=== PATIENT | female | born 1955 | race Two or more races ===

== ENCOUNTER 2021-02-20 20:25 | Emergency (ER) | payer SELFPAY ==
[2021-02-20 20:29] VITALS: BP 119/66; PULSE 81; RESP 16; TEMP 36.6; O2SAT 97
--- NOTE | 2021-02-20 22:21 | ED.GENADULT ---
HPI - General Adult General Chief complaint: Skin/Abscess/Foreign Body Stated complaint: needs stitches taken out Time Seen by Provider: 02/20/21 22:21 Source: patient and family Mode of arrival: ambulatory Limitations: no limitations History of Present Illness HPI narrative: Patient 65 years old white female came to the emergency room with her son to remove stitches at the left lower leg. Patient had the sutures done 2 weeks ago. Patient denies any fever, chills, nausea, vomiting, discharge or redness or tenderness Related Data Allergies Allergy/AdvReac Type Severity Reaction Status Date / Time No Known Allergies Allergy Verified 02/20/21 20:34 Review of Systems Review of Systems: CONSTITUTIONAL: Denies fever, chills, or sweats. EYES: Denies visual changes, redness, or discharge. ENT: Denies rhinorrhea, congestion, sore throat, or otalgia. CARDIOVASCULAR: Denies chest pain, palpitations, or edema. RESPIRATORY: Denies cough or dyspnea. GASTROINTESTINAL: Denies abdominal pain, nausea, vomiting, or diarrhea. GENITOURINARY: Denies dysuria or hematuria. SKIN: Denies rash or itching. MUSCULOSKELETAL: Denies back pain, joint pain, or myalgia. NEUROLOGIC: Denies headache, numbness, or weakness. PSYCHIATRIC: Denies anxiety or depression. Exam Narrative: General appearance: Well-developed, well-nourished Skin: Normal color, left lower leg showed a healed wound with 5 sutures, no erythema, no discharge, no swelling Chest and respiratory: Airway patent, no respiratory distress, no accessory muscle use Heart: Regular rate/rhythm Abdomen: Soft, nontender, no organomegaly, quiet bowel sounds Vascular: Normal peripheral pulses, normal capillary refill. Course Course Emergency Course: Stable Vital Signs Vital signs: Vital Signs Temperature 36.6 C 02/20/21 20:29 Pulse Rate 81 02/20/21 20:29 Respiratory Rate 16 02/20/21 20:29 Blood Pressure 119/66 02/20/21 20:29 Pulse Oximetry 97 02/20/21 20:29 Temperature 36.6 C 02/20/21 20:29 Pulse Rate 81 02/20/21 20:29 Respiratory Rate 16 02/20/21 20:29 Blood Pressure 119/66 02/20/21 20:29 Pulse Oximetry 97 02/20/21 20:29 Procedures Other Procedure Procedure 1: Other Procedure: Suture removed by the nurse Medical Decision Making MDM Narrative Medical decision making narrative: Suture removal Vital Signs Vital Signs: Vital Signs Temperature 36.6 C 02/20/21 20:29 Pulse Rate 81 02/20/21 20:29 Respiratory Rate 16 02/20/21 20:29 Blood Pressure 119/66 02/20/21 20:29 Pulse Oximetry 97 02/20/21 20:29 Temperature 36.6 C 02/20/21 20:29 Pulse Rate 81 02/20/21 20:29 Respiratory Rate 16 02/20/21 20:29 Blood Pressure 119/66 02/20/21 20:29 Pulse Oximetry 97 02/20/21 20:29 Critical Care Time Critical Care Time Critical Care Time: No Discharge Plan Discharge Clinical Impression: Visit for suture removal Patient Disposition: Home, Self-Care Condition: Improved Instructions: Antibiotic Form, Stitches Removal (ED) Additional Instructions: Return if symptoms are worsening , call your family physician for appointment, take Tylenol as as needed for aches and pain, continue home medications. Follow-up/Referrals: PHYSICIAN NOT ON STAFF,NONSTAFF [Primary Care Provider] - Dago Smith MD [Physician] -
[2021-02-20 23:39] VITALS: BP 122/68; PULSE 76; RESP 18; O2SAT 98
== END 2021-02-20 23:25 | disposition home or self-care (01) ==
PROVIDERS: Emergency Provider Emergency Medicine
DX: Z48.02 Encounter for removal of sutures (principal)
CPT/HCPCS: 99281

== ENCOUNTER 2021-03-06 02:50 | Observation (INO) | payer SELFPAY ==
[2021-03-06] VITALS (24 sets, daily range): BP systolic 99–118; BP diastolic 56–81; PULSE 59–89; RESP 16–29; TEMP 36–36.8; O2SAT 92–98
--- NOTE | ~2021-03-06 | XR_ITS ---
XR ERCP DATE: 03/06/2021 15:01 INDICATION: Choledocholithiasis TECHNIQUE: Multiple spot C-arm images are provided, obtained during ERCP procedure 539.7 seconds 118.43 mGy COMPARISON: 03/02/2021 CT abdomen pelvis FINDINGS: An endoscope is noted overlying the duodenum, with the catheter extending into the region o f the common bile duct, with subsequent placement of an internal biliary stent. IMPRESSION: Internal biliary drainage stent Reviewed, dictated and finalized at [facility] Reviewed, dictated and finalized at [facility].
--- NOTE | ~2021-03-06 | CT_ITS ---
EXAMINATION: CT abdomen pelvis w con EXAM DATE: 03/06/2021 04:43 INDICATION: Epigastric pain . TECHNIQUE: Spiral CT of the abdomen and pelvis was performed following intravenous injection of 100 m L Omnipaque 350. Axial, coronal and sagittal images of the abdomen and pelvis were reviewed. The do se-length product (DLP) for this examination was 367.99 mGy-cm. The exposure was tailored according to patient size (auto mA exposure control), and iterative reconstruction (ASIR) was used as additiona l dose reduction technique. There is no prior study for comparison. FINDINGS: For interpretation purposes, essentially noncontrast examination, IV may have infiltrated. The liver, spleen, adrenal glands and pancreas are unremarkable. Status post cholecystectomy with r esultant biliary duct dilation. There is choledocholithiasis measuring 1 cm near the ampulla. There is no nephrolithiasis or hydronephrosis. The uterus is unremarkable. The bladder is unremarkable. There is no retroperitoneal or pelvic lymphadenopathy. Contiguous to the cecal base there is somewhat tubular C-shaped cystic mass measuring about 4 x 6 cm. Portions of the wall are mildly thickened and malignancy is possibility. This appears to be separate from main normal laterally positioned appendix and right ovary. No enlarged mesenteric lymph nodes. The stomach and small bowel are unremarkable. There is expected amount of colonic stool. No free intraperitoneal gas. Mild cardiomegaly. The lung bases are unremarkable. There are no osteoblasti c or osteolytic lesions identified. IMPRESSION: 1. Pericecal cystic mass differential diagnosis including Meckel's diverticulum, paraovarian cyst, c arcinoid tumor, other benign or malignant neoplasm. 2. Cholecystectomy, chronic appearing biliary dilation and choledocholithiasis in midportion of dila carol CBD, does not appear to be obstructing at present. Reviewed, dictated and finalized at [facility]. IMPRESSION: 1. Pericecal cystic mass differential diagnosis including Meckel's diverticulu m, paraovarian cyst, carcinoid tumor, other benign or malignant neoplasm. 2. Cholecystectomy, chronic appearing biliary dilation and choledocholithiasis in midportion of dilated CBD, does not appear to be obstructing at present.
[2021-03-06 03:17] LABS: Basophils Absolute Auto 0.1 K/mm3 (0.0-0.1); Eosinophils Percent Auto 0.6 % (0-4.4); Hematocrit 43.7 % (37.0-47.0); Hemoglobin 13.9 g/dL (12.0-15.0); Immature Granulocyte Absolute 0.01 K/mm3 (0.00-0.031); Immature Granulocyte Percent A 0.2 % (0-0.5); Lymphocytes Absolute Auto 1.56 K/mm3 (0.9-3.2); Mean Corpuscular HGB Conc 31.8 g/dl (32-36); Mean Corpuscular Hemoglobin 29.3 pg (26-34); Mean Platelet Volume 10.9 fl (7.4-10.4); Monocytes Absolute Auto 0.4 K/mm3 (0.1-0.6); Monocytes Percent Auto 5.6 % (2.6-8.5); Neutrophils Absolute Auto 4.2 K/mm3 (1.3-6.7); Neutrophils Percent Auto 67.6 % (45.5-73.1); Platelet Count Result 220 k/mm3 (150-375); Red Blood Count 4.75 M/mm3 (4.2-5.4); Red Cell Distribution Width 12.1 % (11.5-14.5); White Blood Count 6.2 K/mm3 (4.5-10.0)
[2021-03-06 03:22] LABS: Add Urine Microscopic? YES; Appearance Urine Clear (Clear); Bilirubin Urine Negative (Negative); Blood Urine Negative (Negative); Color Urine Amber (Yellow); Glucose Urine UA Negative (Negative); Ketones Urine Negative (Negative); Leukocyte Esterase Ur Negative LEU/UL (Negative); Mucus Urine Rare /lpf; Nitrate Urine Negative (Negative); Protein Urine Negative (Negative); RBC Urine 0-2 /hpf (0-2); Specific Grav Ur 1.017 (1.001-1.035); Squamous Epithelial Cell Urine Rare /hpf (Few); WBC Urine 0-3 /hpf
[2021-03-06 03:49] LABS: Alanine Aminotransferase 169 U/L (4-35); Albumin Level 4.2 g/dL (3.5-5.1); Alkaline Phosphatase 493 U/L (38-126); Anion Gap 9 mmol/L (8-16); Aspartate Amino Transferase 335 U/L (14-36); Bilirubin,Total 1.4 mg/dL (0.2-1.3); Blood Urea Nitrogen 16 mg/dL (7-17); Calcium 9.8 mg/dL (8.4-10.2); Carbon Dioxide 26 mmol/L (22-30); Chloride 104 mmol/L (98-107); Estimated CRCL calculation 63 ml/min; Estimated Glomerular Filt Rate > 60; Glucose 147 mg/dL (65-110); Lipase 300 U/L (23-300); Potassium 4.4 mmol/L (3.4-5.0); Sodium 139 mmol/L (137-145)
--- NOTE | 2021-03-06 03:53 | ED.ABDPAIN ---
HPI - Abdominal Pain General Chief Complaint: Abdominal Pain Stated Complaint: abd pain/ surgery 1 month [employer] Source: patient Mode of arrival: ambulatory Limitations: no limitations History of Present Illness HPI narrative: Patient is a 65-year-old female complaining of epigastric pain, sharp, 9 out of 10 accompanied by nausea and vomiting, worse after eating that started approximately 1 month ago after she had her gallbladder surgery. Patient states that the pain is worse at night and that is why she came in. Patient denies any chest pain, shortness of breath, diarrhea, fever or chills. Related Data Allergies Allergy/AdvReac Type Severity Reaction Status Date / Time No Known Allergies Allergy Verified 02/20/21 20:34 Review of Systems Review of Systems: All systems reviewed & are unremarkable except as noted in HPI and below Constitutional: Constitutional: Denies body ache(s), Denies chills, Denies excessive sweating, Denies fatigue, Denies fever(s), Denies headache(s), Denies lethargy, Denies malaise, Denies weakness and Denies weight loss Eyes: Eyes: Denies blurry vision, Denies change in vision and Denies loss of vision ENT: Denies dizziness, Denies ear discharge, Denies headache(s), Denies lip swelling, Denies epistaxis, Denies nasal congestion, Denies neck pain, Denies throat swelling and Denies tongue swelling Cardiovascular: Cardiovascular: Denies chest pain, Denies chest pain at rest, Denies chest pain with activity, Denies diaphoresis, Denies rapid heart rate, Denies edema, Denies irregular heart rhythm, Denies lightheadedness, Denies palpitations, Denies dyspnea and Denies dyspnea on exertion Respiratory: Respiratory: Denies chest congestion, Denies cough, Denies hemoptysis, Denies dyspnea and Denies dyspnea on exertion Gastrointestinal: Gastrointestinal: Denies melena, Denies hematochezia, Denies diarrhea and Denies hematemesis Musculoskeletal: Musculoskeletal: Denies abnormal gait, Denies deformity, Denies joint swelling, Denies limited range of motion, Denies neck pain and Denies numbness Neurologic: Denies Abnormal speech present, Denies abnormal gait, Denies confusion, Denies dizziness, Denies headache(s), Denies focal weakness, Denies loss of vision, Denies numbness, Denies Other visual disturbances, Denies Sensory deficit (Neuro) and Denies weakness Psychiatric: Psychiatric: Denies confusion, Denies depression, Denies auditory hallucinations, Denies homicidal ideation and Denies suicidal ideation Endocrine: Endocrine: Denies cold intolerance, Denies excessive sweating, Denies fatigue, Denies heat intolerance and Denies palpitations Hematologic/Lymphatic: Hematologic/Lymphatic: Denies easy bleeding and Denies easy bruising Allergic/Immunologic: Allergic/Immunologic: Denies lip swelling, Denies throat swelling and Denies tongue swelling [facility] Social History Social History Gender identity (if verbalized by the patient): Female Comments Past medical history: Ivan duffy Family history: Noncontributory Social history: Non-smoker no EtOH use Exam Const: General: cooperative, healthy appearing, comfortable, no acute distress, well developed, alert and awake; No confusion Orientation/consciousness: oriented to person, oriented to place, oriented to time, patient oriented x3 and No confusion Limitations: no limitations HENMT: Head: normal to inspection, normocephalic and atraumatic Ears: hearing grossly normal bilaterally, TM normal on the right and TM normal on the left General nose exam: Normal external nose present, Normal nares present and No nasal discharge present Face and sinus: normal facial exam Mouth: Yes Normal oral and palatal mucosa present, Yes lip normal, Yes tongue normal and Yes oropharynx normal Throat: posterior oropharynx normal, tonsils normal and uvula midline Eyes: General: appearance normal, both eyes and all related structures Pupils: Equa
[2021-03-06] MEDS: HYDROmorphone HCL INJ (*CRX) 1 MG/ML SYR 0.5 MG IV PUSH (04:09)
[2021-03-06] MEDS: PROMETHAZINE HCL 25 MG/ML AMPUL 12.5 MG IV PUSH (04:09)
--- NOTE | 2021-03-06 08:58 | WPDANESEPPF ---
Anes - Initial Pre Proc Eval Procedure: Operation Date: 03/06/21 12:00 Proposed Procedures p Endoscopic Retro Cholangiopancreatogram - Alan Thurston MD Date/Time: 03/06/21 08:58 Surgeon: Maribell Capps MD Pre Op Diagnosis: choledocholithiasis Patient Data Age: 65 Gender: F Height: 1.52 m Weight: 60 kg Last Vital Signs Temp 36.5 C 03/06/21 04:06 Pulse 71 03/06/21 07:36 Resp 19 03/06/21 07:36 BP 103/72 03/06/21 07:36 Pulse Ox 96 03/06/21 07:36 Allergies Allergy/AdvReac Type Severity Reaction Status Date / Time No Known Allergies Allergy Verified 03/06/21 10:55 Home Medications Medication Instructions Recorded Confirmed Type No Home Medications 03/06/21 03/06/21 History Laboratory Tests 03/06/21 03/06/21 03/06/21 03:10 03:10 03:10 WBC 6.2 K/mm3 K/mm3 (4.5-10.0) RBC 4.75 M/mm3 M/mm3 (4.2-5.4) Hgb 13.9 g/dL g/dL (12.0-15.0) Hct 43.7 % % (37.0-47.0) MCV 92.0 fl fl (80-100) MCH 29.3 pg pg (26-34) MCHC 31.8 g/dl L g/dl (32-36) RDW 12.1 % % (11.5-14.5) Plt Count 220 k/mm3 k/mm3 (150-375) MPV 10.9 fl H fl (7.4-10.4) Immature Gran % (Auto) 0.2 % % (0-0.5) Neut % (Auto) 67.6 % % (45.5-73.1) Lymph % (Auto) 25.0 % % (18.3-44.2) [place] % (Auto) 5.6 % % (2.6-8.5) Eos % (Auto) 0.6 % % (0-4.4) Baso % (Auto) 1.0 % % (0.2-1.2) Lymph # (Auto) 1.56 K/mm3 K/mm3 (0.9-3.2) [place] # (Auto) 0.4 K/mm3 K/mm3 (0.1-0.6) Eos # (Auto) 0.0 K/mm3 K/mm3 (0-0.3) Baso # (Auto) 0.1 K/mm3 K/mm3 (0.0-0.1) Abs Immat Gran (auto) 0.01 K/mm3 K/mm3 (0.00-0.031) Absolute Neuts (auto) 4.2 K/mm3 K/mm3 (1.3-6.7) Absolute Nucleated RBC 0.0 K/mm3 K/mm3 (0.0-0.012) Nucleated RBC % 0.0 % % (0.0-0.2) Sodium 139 mmol/L mmol/L (137-145) Potassium 4.4 mmol/L mmol/L (3.4-5.0) Chloride 104 mmol/L mmol/L (98-107) Carbon Dioxide 26 mmol/L mmol/L (22-30) Anion Gap 9 mmol/L mmol/L (8-16) BUN 16 mg/dL mg/dL (7-17) Creatinine 0.60 mg/dL L mg/dL (0.7-1.0) Estim Creat Clear Calc 63 ml/min ml/min Estimated GFR > 60 (59 - ) Glucose 147 mg/dL H mg/dL (65-110) Calcium 9.8 mg/dL mg/dL (8.4-10.2) Total Bilirubin 1.4 mg/dL H mg/dL (0.2-1.3) AST 335 U/L H U/L (14-36) ALT 169 U/L H U/L (4-35) Alkaline Phosphatase 493 U/L H U/L (38-126) Total Protein 8.0 g/dL g/dL (6.3-8.2) Albumin 4.2 g/dL g/dL (3.5-5.1) Lipase 300 U/L U/L (23-300) Urine Color [place] (Yellow) Urine Appearance Clear (Clear) Urine pH 5.0 (5.0-9.0) Ur Specific [place] 1.017 (1.001-1.035) Urine Protein Negative mg/dL mg/dL (Negative) Urine Glucose (UA) Negative mg/dL mg/dL (Negative) Urine Ketones Negative mg/dL mg/dL (Negative) Ur Blood (Man) Negative (Negative) Urine Nitrate Negative (Negative) Urine Bilirubin Negative (Negative) Urine Urobilinogen 4.0 mg/dL H mg/dL (<2.0) Leukocyte Esterase Rfl Negative LASHAE/UL LASHAE/UL (Negative) Urine RBC 0-2 /hpf /hpf (0-2) Urine WBC 0-3 /hpf /hpf Ur Squamous Epith Cells Rare /hpf /hpf (Few) Urine Mucus Rare /lpf /lpf Patient hx anesthesia problems: none Family hx anesthesia problems: none PMFSH Social History Social History Gender identity (if verbalized by the patient): Female Anes - Eval Final PreProcedure Day of Procedure 03/06/21 08:58 Patient weight: overweight Heart: regular rat
[2021-03-06] MEDS: LACTATED RINGERS 1,000 ML 125 ML IV CONT ×2 (10:08→16:47)
[2021-03-06] MEDS: LACTATED RINGERS 1,000 ML 150 ML IV CONT (11:00)
--- NOTE | 2021-03-06 13:09 | WPDGICN ---
Assessment and Plan Assessment and plan (1) Bile duct abnormality: Code(s): K83.9 - Disease of biliary tract, unspecified Status: Acute Assessment and Plan: CT scan reviewed, she had lap clive at [facility] 1 month ago and she has been symptomatic since. Worried about retained stones but also need to assess if bile leak or iatrogenic complications. ERCP to assess and more recommendations after scope. [facility]. (2) RUQ pain: Code(s): R10.11 - Right upper quadrant pain Status: Acute Assessment and Plan: biliary colic worsened after lap clive will assess with ercp to check if stones, complications, etc (3) Elevated liver enzymes: Code(s): R74.8 - Abnormal levels of other serum enzymes Status: Acute Assessment and Plan: biliary related may need antibiotics (4) Nausea and vomiting in adult: Code(s): R11.2 - Nausea with vomiting, unspecified Status: Acute Assessment and Plan: medical treatment (5) Hx laparoscopic cholecystectomy: Code(s): Z90.49 - Acquired absence of other specified parts of digestive tract Status: Acute GI Consult Note Consult date/time: 03/06/21 13:09 Reason for consult: ruq pain, elevated lft's, abnormal bile duct by CT scan HPI: Harris Garcia is a 65 year old female who is originally from [facility] but lives here with family, her son is here and he is translating (she does not speak Colombian). About 1 month ago when she was visiting friend back in [facility] underwent lap cholecystectomy and since then has been having intermittent RUQ pain with decrease appetite but last few days worsening pain, sharp in nature and severe, yesterday with nausea and vomiting. Blood work revealed elevated liver enzymes with bili 1.4, transaminases 150-300's. CT scan showed 4x6cm pericecal cystic mass differential diagnosis including Meckel's diverticulum, paraovarian cyst, carcinoid tumor, other benign or malignant neoplasm, cholecystectomy, chronic appearing biliary dilation and choledocholithiasis in midportion of dilated CBD, does not appear to be obstructing at present. She never had scopes. Denies diarrhea. Review of Systems Constitutional: Constitutional: Reports lethargy Eyes: Eyes: Denies blurry vision ENT: Reports Normal hearing present Cardiovascular: Cardiovascular: Denies chest pain Respiratory: Respiratory: Denies dyspnea Gastrointestinal: Gastrointestinal: Reports abdominal pain, Reports nausea and Reports vomiting Genitourinary: Genitourinary: Denies hematuria Musculoskeletal: Musculoskeletal: Denies neck pain Integumentary/Breasts: Skin/Breast: Denies dry skin Neurologic: Denies headache(s) Psychiatric: Psychiatric: Reports no additional psychiatric complaints [facility] Past Medical History Medical History (Updated 03/06/21 @ 16:26 by Alan Thurston MD) Bile duct abnormality Nausea and vomiting in adult RUQ pain Surgical History Surgical History (Updated 03/06/21 @ 16:26 by Alan Thurston MD) Hx laparoscopic cholecystectomy Social History Social History Gender identity (if verbalized by the patient): Female Meds Home Medications and Allergies Home Medications Medication Instructions Recorded Confirmed Type No Home Medications 03/06/21 03/06/21 History Allergies Allergy/AdvReac Type Severity Reaction Status Date / Time No Known Allergies Allergy Verified 03/06/21 10:55 Vital Signs Vital Signs - 24 hr 03/06/21 02:58 03/06/21 04:06 03/06/21 04:36 Temperature 97.0 F L 97.7 F Pulse Rate 80 71 76 Respiratory Rate 16 25 H 19 Blood Pressure 110/66 104/81 Pulse Oximetry 98 97 95 03/06/21 04:45 03/06/21 05:00 03/06/21 05:15 Temperature Pulse Rate 76 72 72 Respiratory Rate 28 H 29 H 28 H Blood Pressure Pulse Oximetry 95 93 94 03/06/21 05:49 0
[2021-03-06] MEDS: INDOMETHACIN 50 MG SUPP.RECT RECTAL (13:31)
--- NOTE | 2021-03-06 13:52 | PM.IMHP ---
H&P: HPI History of Present Illness Date/Time: 03/06/21 13:52 Chief Complaint: Abdominal pain with nausea vomiting Narrative: 65-year-old female was vacationing in [facility] for about 2 months. She had sudden onset of right upper quadrant abdominal pain nausea vomiting. Her son who was Will vacationing with her took her to a private Hospital where she had a laparoscopic cholecystectomy. Since the surgery she has had postprandial right upper quadrant abdominal pain and nausea with emesis. Even drinking water causes symptoms. The pain is moderate to severe. Last for several minutes. She has had no hematemesis. No melena or hematochezia. No prior history of GI issues. She has been quite healthy all of her life. Her stools have not been ranch [place] than usual nor darker than usual. She denied fevers chills or sweats. Over the last month she has lost 10-12 lb due to decreased appetite and abdominal pain. While in the emergency department she had abdominal CT that suggested choledocholithiasis. However when she was taken for ERCP the endoscopist found biliary stricture a bile leak and pus. Hx obtained from son, chart, and discussion with Dr. Medina. Review of Systems Review of Systems: She denied fevers chills sweats chest pain shortness of breath dyspnea on exertion edema palpitations syncope presyncope rash itching headaches weakness or numbness. All systems reviewed & are unremarkable except as noted in HPI and below PMFSH Past Medical History Medical History (Updated 03/06/21 @ 17:59 by Boom Avery MD) Bile duct abnormality Nausea and vomiting in adult RUQ pain Surgical History Surgical History (Updated 03/06/21 @ 17:59 by Boom Avery MD) Hx laparoscopic cholecystectomy Hx of section Family History Family History (Updated 03/06/21 @ 18:02 by Boom Avery MD) Son No problems noted. Social History Social History (Updated 03/06/21 @ 18:03 by Boom Avery MD) Smoking status: Never smoker Alcohol intake: never Substance use: never Substance use type: does not use Living arrangements: with family Additional living arrangements comments: Lives with son Occupation/Education: retired Gender identity (if verbalized by the patient): Female Spiritual care concerns: No Meds Home Medications and Allergies Home Medications Medication Instructions Recorded Confirmed Type No Home Medications 03/06/21 03/06/21 History Allergies Allergy/AdvReac Type Severity Reaction Status Date / Time No Known Allergies Allergy Verified 03/06/21 10:55 Vital Signs Vital Signs - 24 hr 03/06/21 02:58 03/06/21 04:06 03/06/21 04:36 Temperature 97.0 F L 97.7 F Pulse Rate 80 71 76 Respiratory Rate 16 25 H 19 Blood Pressure 110/66 104/81 Pulse Oximetry 98 97 95 03/06/21 04:45 03/06/21 05:00 03/06/21 05:15 Temperature Pulse Rate 76 72 72 Respiratory Rate 28 H 29 H 28 H Blood Pressure Pulse Oximetry 95 93 94 03/06/21 05:49 03/06/21 07:36 03/06/21 09:20 Temperature Pulse Rate 73 71 89 Respiratory Rate 24 H 19 27 H Blood Pressure 103/72 108/70 Pulse Oximetry 94 96 95 03/06/21 10:45 03/06/21 10:57 Temperature 97.7 F Pulse Rate 84 83 Respiratory Rate 29 H 18 Blood Pressure 99/70 L 112/68 Pulse Oximetry 96 98 Exam Narrative: HEENT: PERRL, sclerae nonicteric, pharyngeal mucosa pink and intact NECK: No JVD, adenopathy, or thyromegaly CHEST: Clear to auscultation. Normal effort. HEART: NL S1/S2, regular, no murmur ABDOMEN: BS+, soft, TENDER EPIGASTRIUM TO RIGHT UPPER QUADRANT, no mass, no bruits EXTREMITIES: No cyanosis, edema, or clubbing NEUROLOGIC: CN intact and symmetric to inspection. MUSCULOSKELETAL: Tone and strength symmetric. PSYCH: Alert. Oriented to person, place, and time. H&P: Results Labs Labs: Short CBC 03/06/21 Range/Units 03:10 WBC 6.2 (4.5-10.0) K/mm3 Hgb 13.9 (12.0-15.0)
--- NOTE | 2021-03-06 16:34 | PC.NURSE ---
This patient, Harris Garcia, was admitted to Medical Room 247-. Patient/family oriented to hospital policies and general routines including ID bracelet, bed and alarms, visiting hours, pain management, procedures, bathroom and other care routines, personal items, smoking policy, room service/diet, and visiting hours. Information on how to activate the Rapid Response Team has been discussed. Patient/Family are encouraged to report perceived risks to care and to ask questions if they do not understand what they are told or what they should do.
--- NOTE | 2021-03-18 16:02 | PM.TDS ---
Transfer Discharge Sum: Prov Provider Date of admission: 03/06/21 06:22 Primary care physician: AGENCY SALES REPRESENTATIVE PHYSICIAN Admitting clinician: Maribell Capps MD Consults: 03/06/21 Consult to Physician Routine Comment: Consulting Provider: Alan Thurston Reason for consultation: CHOLEDOCHOLITHIASIS Has provider been notified: Yes DS: Admitting Diagnosis Admitting Diagnosis abdominal pain with possible choledocholithiasis DS: Discharge Diagnosis Discharge Diagnosis (1) Acute cholangitis: Code(s): K83.09 - Other cholangitis Status: Acute Assessment and Plan: ZOSYN (2) Biliary stricture: Code(s): K83.1 - Obstruction of bile duct Status: Acute Assessment and Plan: REFERRAL TO BILIARY SURGEON (3) Bile leak: Code(s): K83.9 - Disease of biliary tract, unspecified Status: Acute Assessment and Plan: REFERRAL TO BILIARY SURGEON (4) Elevated liver enzymes: Code(s): R74.8 - Abnormal levels of other serum enzymes Status: Acute Assessment and Plan: DUE TO CHOLANGITIS Transfer Discharge Sum: Med Medications Active and Home Medications: Home Medications No Home Medications 03/06/21 [History Confirmed 03/06/21] Transfer Discharge Sum: Hosp Hospital Course Hospital course: Harris Garcia is a 65 year old female who was vacationing in [facility] for about 2 months. She had sudden onset of right upper quadrant abdominal pain nausea vomiting. Her son who was Will vacationing with her took her to a private Hospital where she had a laparoscopic cholecystectomy. Since the surgery she has had postprandial right upper quadrant abdominal pain and nausea with emesis. Even drinking water causes symptoms. The pain is moderate to severe. Last for several minutes. She has had no hematemesis. No melena or hematochezia. No prior history of GI issues. She has been quite healthy all of her life. Her stools have not been support technician than usual nor darker than usual. She denied fevers chills or sweats. Over the last month she has lost 10-12 lb due to decreased appetite and abdominal pain. While in the emergency department she had abdominal CT that suggested choledocholithiasis. However when she was taken for ERCP the endoscopist found biliary stricture a bile leak and pus. Hx obtained from son, chart, and discussion with Dr. Medina. She had an unremarkable stay following her procedure. [facility] was contacted as a tertiary referral center who might be able to more effectively intervene with a biliary surgeon or rock singer with more tools at his disposal. Fortunately a bed opened the same day they were contacted and the patient transferred expeditiously to [facility] for further evaluation and treatment. Time Spent with Patient Time attestation: Total time spent providing and/or coordinating transfer services: Exam Narrative: HEENT: PERRL, sclerae nonicteric, pharyngeal mucosa pink and intact NECK: No JVD, adenopathy, or thyromegaly CHEST: Clear to auscultation. Normal effort. HEART: NL S1/S2, regular, no murmur ABDOMEN: BS+, soft, TENDER EPIGASTRIUM TO RIGHT UPPER QUADRANT, no mass, no bruits EXTREMITIES: No cyanosis, edema, or clubbing NEUROLOGIC: CN intact and symmetric to inspection. MUSCULOSKELETAL: Tone and strength symmetric. PSYCH: Alert. Oriented to person, place, and time.
== END 2021-03-06 20:30 | disposition short-term general hospital (02) ==
LOC: ANHED 08:39 → ANH2MED 08:51
PROVIDERS: Internal Medicine Gastroenterology; Admitting Provider Internal Medicine; Emergency Provider Emergency Medicine; Visit Provider Internal Medicine
PROC: (CPT 43260; principal; 2021-03-06 12:00)
DX: K83.09 Other cholangitis (principal); K83.1 Obstruction of bile duct; R74.8 Abnormal levels of other serum enzymes; R10.11 Right upper quadrant pain; Z90.49 Acquired absence of other specified parts of digestive tract
CPT/HCPCS: 43274; 36415; 74177; 74329; 80053; 81001; 83690; 85025; 87040; 96361; 96365; 96375; 99285; A9270; C1876; G0378; G0379; J0330; J1100; J1170; J2405; J2543; J2550; J2704; J3010; J7120; Q9967

== ENCOUNTER 2022-02-21 17:41 | Emergency (ER) | payer MEDICAID, SELFPAY ==
--- NOTE | ~2022-02-21 | CT_ITS ---
EXAMINATION: CT abdomen pelvis w con DATE: 02/21/2022 20:14 INDICATION: Right lower quadrant pain TECHNIQUE: Computed tomography (CT) of the abdomen and pelvis was performed with 100 cc Omnipaque 350 intravenous contrast. The dose-length product was 459.41 mGy-cm. Automated exposure control and iter ative reconstruction technique were employed. COMPARISON: CT dated 03/06/2021. FINDINGS: There is a cystic mass which is contiguous with the cecum measuring 6.1 x 4.7 x 4.9 cm. The appendix is not clearly delineated separate from this mass. There is a fat-containing umbilical ayala ia. Dependent atelectasis. Heart size upper normal. No significant pleural or pericardial effusion. Statu s post cholecystectomy with pneumobilia. The spleen, pancreas, adrenal glands and kidneys are unremar kable. No significant vascular abnormality. No lymphadenopathy. No free air or free fluid. Nonobstruc tive bowel gas pattern. IMPRESSION: 1. Peripherally enhancing cystic mass contiguous with the cecum. The appendix is not clearly identifi able separate from this mass which may represent a mucocele of the appendix. Differential diagnosis i ncludes appendiceal tumors, cecal carcinoma and benign and malignant mucinous neoplasms. Reviewed, dictated and finalized at location A. IMPRESSION: 1. Peripherally enhancing cystic mass contiguous with the cecum. The appendix i s not clearly identifiable separate from this mass which may represent a mucoce le of the appendix. Differential diagnosis includes appendiceal tumors, cecal c arcinoma and benign and malignant mucinous neoplasms.
[2022-02-21 17:42] VITALS: BP 96/64; PULSE 94; RESP 18; TEMP 36.4; O2SAT 96
[2022-02-21 18:00] LABS: Basophils Absolute Auto 0.1 K/mm3 (0.0-0.1); Basophils Percent Auto 0.7 % (0.2-1.2); Eosinophils Absolute Auto 0.1 K/mm3 (0-0.3); Eosinophils Percent Auto 0.7 % (0-4.4); Immature Granulocyte Absolute 0.02 K/mm3 (0.00-0.031); Immature Granulocyte Percent A 0.3 % (0-0.5); Lymphocytes Absolute Auto 2.26 K/mm3 (0.9-3.2); Lymphocytes Percent Auto 32.6 % (18.3-44.2); Mean Corpuscular HGB Conc 32.5 g/dl (32-36); Mean Corpuscular Hemoglobin 29.2 pg (26-34); Mean Corpuscular Volume 89.9 fl (80-100); Mean Platelet Volume 10.4 fl (7.4-10.4); Monocytes Absolute Auto 0.8 K/mm3 (0.1-0.6); Monocytes Percent Auto 10.8 % (2.6-8.5); Neutrophils Absolute Auto 3.8 K/mm3 (1.3-6.7); Neutrophils Percent Auto 54.9 % (45.5-73.1); Platelet Count Result 239 k/mm3 (150-375); Red Blood Count 4.45 M/mm3 (4.2-5.4); Red Cell Distribution Width 11.8 % (11.5-14.5); White Blood Count 6.9 K/mm3 (4.5-10.0)
[2022-02-21 18:10] LABS: Alanine Aminotransferase 17 U/L (6-35); Albumin Level 4.3 g/dL (3.5-5.1); Alkaline Phosphatase 101 U/L (38-126); Anion Gap 8 mmol/L (8-16); Aspartate Amino Transferase 24 U/L (14-36); Bilirubin,Total 0.4 mg/dL (0.2-1.3); Blood Urea Nitrogen 18 mg/dL (7-17); Carbon Dioxide 29 mmol/L (22-30); Chloride 104 mmol/L (98-107); Estimated Glomerular Filt Rate > 60; Glucose 109 mg/dL (65-110); Lipase 279 U/L (23-300); Sodium 141 mmol/L (137-145)
[2022-02-21 18:22] LABS: Appearance Urine Cloudy (Clear); Bilirubin Urine Negative (Negative); Color Urine Yellow (Yellow); Glucose Urine UA Negative (Negative); Ketones Urine Trace mg/dL (Negative); Leukocyte Esterase Ur 2+ LEU/UL (Negative); Nitrate Urine Positive (Negative); Protein Urine 1+ mg/dL (Negative); Urobilinogen Urine 0.2 mg/dL (<2.0); pH Urine 5.5 (5.0-9.0)
[2022-02-21 18:31] LABS: Add Urine Microscopic? YES; Blood Urine Trace-Intact (Negative)
[2022-02-21 18:34] LABS: Bacteria Urine Trace /hpf; Mucus Urine Rare /lpf; Squamous Epithelial Cell Urine Rare /hpf (Few); WBC Urine >75 /hpf
--- NOTE | 2022-02-21 19:15 | PC.NURSE ---
Patient report given to MAI Lin. ALl questions answered and care of patient transferred.
[2022-02-21 19:20] VITALS: BP 96/66; PULSE 70; RESP 17; O2SAT 94
[2022-02-21 19:51] VITALS: BP 107/71; PULSE 73; RESP 18; O2SAT 97
--- NOTE | 2022-02-21 19:53 | ED.ABDPAIN ---
HPI - Abdominal Pain General Chief Complaint: Abdominal Pain Stated Complaint: Abd pain Time Seen by Provider: 02/21/22 18:45 Source: patient, family and certified pharmacist assistant Mode of arrival: ambulatory Limitations: language barrier History of Present Illness HPI narrative: Patient is a 66 y/o female who presents the ED with report of lower abdominal pain and urinary symptoms. Patient is primarily Faroese speaking. Patient's grandson at bedside is Mongolian speaking and translated for patient. I did offer to use [employer] certified pharmacist assistant, though grandson felt comfortable translating. Patient reports having lower abdominal pain for the past 4 days. She also reports having pain and burning with urination. Denies hematuria. Intermittent nausea and vomiting, denies any nausea currently. No fever, chills, diarrhea, constipation, low back pain. Took 2 Aleve around 2 PM today. Related Data Allergies Allergy/AdvReac Type Severity Reaction Status Date / Time No Known Allergies Allergy Verified 03/06/21 10:55 Review of Systems Review of Systems: CONSTITUTIONAL: Denies fever, chills, or sweats. CARDIOVASCULAR: Denies chest pain. RESPIRATORY: Denies dyspnea. GASTROINTESTINAL: Reports lower abdominal pain, nausea, vomiting. Denies constipation or diarrhea. GENITOURINARY: Reports dysuria. Denies hematuria. MUSCULOSKELETAL: Denies lower back pain. All systems reviewed & are unremarkable except as noted in HPI and below PMFSH Past Medical History Medical History Bile duct abnormality Nausea and vomiting in adult RUQ pain Surgical History Surgical History Hx laparoscopic cholecystectomy Hx of section Family History Family History (Updated 03/06/21 @ 18:02 by Boom Avery MD) Son No problems noted. Social History Social History Smoking status: Never smoker Alcohol intake: never Substance use: never Substance use type: does not use Additional living arrangements comments: Lives with son Gender identity (if verbalized by the patient): Female Spiritual care concerns: No Exam Narrative: GENERAL: Well appearing, well-nourished, non-toxic, in no acute distress. HEAD: Normocephalic, atraumatic. NECK: Supple. No adenopathy, no masses. RESPIRATORY: Airway patent, respirations nonlabored. Clear to auscultation bilaterally, no rales, rhonchi, wheezing. CARDIOVASCULAR: Regular rate and rhythm without murmurs, rubs, or gallops. Peripheral pulses 2+ and equal bilaterally. ABDOMINAL: Soft, tenderness to palpation in suprapubic region, right lower quadrant. Nondistended, no hepatosplenomegaly. Normoactive BS. No CVA tenderness to percussion. MUSCULOSKELETAL: Moves all extremities. Strength/ROM intact without gross deformities. No midline spinal tenderness. SKIN: Warm, dry, normal color. No rashes. NEURO: A&O X3. Speech clear. Cranial nerves II-XII grossly intact. Steady gait. No ataxic movements. PSYCHIATRIC: Appropriate mood and affect. Normal interaction. Course Consultations Consultation #1: Discussed CT findings and patient presentation with Dr. Phelan, general surgery. Advised patient may need colon resection in the future, but non emergently. Recommended patient can be discharged home with antibiotics and f/u in the office as outpatient. Date: 02/21/22 Time: 21:30 Vital Signs Vital signs: Vital Signs Temperature 97.6 F 02/21/22 17:42 Pulse Rate 94 02/21/22 17:42 Respiratory Rate 18 02/21/22 17:42 Blood Pressure 96/64 L 02/21/22 17:42 Pulse Oximetry 96 02/21/22 17:42 Temperature 97.6 F 02/21/22 17:42 Pulse Rate 72 02/21/22 21:29 Respiratory Rate 15 02/21/22 21:29 Blood Pressure 100/79 02/21/22 21:29 Pulse Oximetry 98 02/21/22 21:29 MDM - Abdominal Pain MDM Narrative Medical decision making narrative: Zahraa
--- NOTE | 2022-02-21 19:58 | PC.NURSE ---
Pt to CT scan via stretcher at this time.
[2022-02-21] MEDS: SODIUM CHLORIDE 0.9% IV 1,000 ML 999 ML IV CONT (20:26)
[2022-02-21 21:29] VITALS: BP 100/79; PULSE 72; RESP 15; O2SAT 98
== END 2022-02-21 22:47 | disposition home or self-care (01) ==
PROVIDERS: Emergency Provider Emergency Medicine
DX: N30.01 Acute cystitis with hematuria (principal); R19.09 Other intra-abdominal and pelvic swelling, mass and lump
CPT/HCPCS: 36415; 74177; 80053; 81001; 83690; 85025; 87077; 87086; 87186; 96365; 96367; 99284; J0131; J0696; J7030; Q9967

== ENCOUNTER 2022-04-03 15:59 | Emergency (ER) | payer MEDICAID, SELFPAY ==
--- NOTE | ~2022-04-03 | CT_ITS ---
EXAMINATION: CT abdomen pelvis w con DATE: 04/03/2022 17:46 INDICATION: Right lower quadrant abdominal pain TECHNIQUE: Computed tomography (CT) of the abdomen and pelvis was performed with 100 CC Omnipaque 350 intravenous contrast. Automated exposure control and iterative reconstruction technique were employe d. Exam dose: 469.41 mGy-cm total exam DLP. COMPARISON: 02/21/2022 CT abdomen pelvis FINDINGS: The lung bases are clear of infiltrate or consolidation. Heart size is normal. No pericardi al or pleural effusion. Status post cholecystectomy, which likely accounts for pneumobilia. No hepatic, splenic, pancreatic, adrenal or renal space-occupying mass lesion is detected. Normal caliber of the abdominal aorta. No intraperitoneal or retroperitoneal or pelvic mass lesion or adenopathy or ascites. Uterus, adnexal areas and urinary bladder are unremarkable. There is a thick walled hypoattenuating lesion in the cecal area in the right lower quadrant, current ly measuring up to approximately 3.4 x 3.7 cm dimension compared to 4.3 x 5.4 cm dimension on 02/22/20 22. There is interval presence of some air within the lesion since 02/21/2022. The lesion measures yennifer roximately 7 mm average width. Appendiceal mucocele is unlikely due to the thick wall of the lesion. Appendiceal abscess with thick wall is a consideration in addition to mucinous cystadenoma, mucinous cystadenocarcinoma of the appen gurmeet. Urgent surgical consultation is recommended to avoid any potential seeding of the peritoneum in the event that this might prove to be mucocele or mucinous neoplasm. Degenerative changes of the thoracic and lumbar spine, including moderately severe degenerative disea se at L3-4, moderate degenerative disease at L4-5 and L5-S1. Hemangioma of T6. IMPRESSION: Diminished size and interval are within a thick-walled cystic mass in the right lower qu adrant near the cecum since 02/21/2022. The thick-walled would not be expected with a simple mucocele of the appendix. Consider appendiceal a bscess, mucinous cystadenoma and mucinous cystadenocarcinoma. This is not likely a cystic adnexal mas s due to its location a relatively remote from the adnexal area. Urgent surgical consultation is recommended. Should this be a mucocele or mucinous cystadenoma or cys tadenocarcinoma, urgent attention is recommended to avoid possible seeding of the peritoneum. Reviewed, dictated and finalized at [facility]. Reviewed, dictated and finalized at location B. IMPRESSION: Diminished size and interval are within a thick-walled cystic mass in the right lower quadrant near the cecum since 02/21/2022. The thick-walled would not be expected with a simple mucocele of the appendix. Consider appendiceal abscess, mucinous cystadenoma and mucinous cystadenocarcin lorene. This is not likely a cystic adnexal mass due to its location a relatively remote from the adnexal area. Urgent surgical consultation is recommended. Should this be a mucocele or mucin ous cystadenoma or cystadenocarcinoma, urgent attention is recommended to avoid possible seeding of the peritoneum.
[2022-04-03 16:06] VITALS: BP 111/68; PULSE 82; RESP 18; TEMP 36.8; O2SAT 98
[2022-04-03 16:55] LABS: Basophils Absolute Auto 0.1 K/mm3 (0.0-0.1); Basophils Percent Auto 1.4 % (0.2-1.2); Eosinophils Absolute Auto 0.1 K/mm3 (0-0.3); Eosinophils Percent Auto 2.1 % (0-4.4); Hematocrit 41.9 % (37.0-47.0); Hemoglobin 13.7 g/dL (12.0-15.0); Immature Granulocyte Absolute 0.02 K/mm3 (0.00-0.031); Immature Granulocyte Percent A 0.3 % (0-0.5); Lymphocytes Absolute Auto 3.16 K/mm3 (0.9-3.2); Lymphocytes Percent Auto 47.9 % (18.3-44.2); Mean Corpuscular HGB Conc 32.7 g/dl (32-36); Mean Corpuscular Hemoglobin 29.4 pg (26-34); Mean Corpuscular Volume 89.9 fl (80-100); Mean Platelet Volume 9.9 fl (7.4-10.4); Monocytes Absolute Auto 0.5 K/mm3 (0.1-0.6); Monocytes Percent Auto 8.2 % (2.6-8.5); Neutrophils Absolute Auto 2.7 K/mm3 (1.3-6.7); Neutrophils Percent Auto 40.1 % (45.5-73.1); Platelet Count Result 236 k/mm3 (150-375); Red Blood Count 4.66 M/mm3 (4.2-5.4); Red Cell Distribution Width 11.9 % (11.5-14.5); White Blood Count 6.6 K/mm3 (4.5-10.0)
[2022-04-03 17:04] LABS: Appearance Urine Clear (Clear); Bilirubin Urine Negative (Negative); Blood Urine Negative (Negative); Color Urine Yellow (Yellow); Glucose Urine UA Negative (Negative); Ketones Urine Negative (Negative); Leukocyte Esterase Ur Negative LEU/UL (Negative); Nitrate Urine Negative (Negative); Protein Urine Negative (Negative); pH Urine 7.5 (5.0-9.0)
[2022-04-03 17:05] LABS: Alanine Aminotransferase 22 U/L (6-35); Albumin Level 4.5 g/dL (3.5-5.1); Alkaline Phosphatase 100 U/L (38-126); Anion Gap 11 mmol/L (8-16); Aspartate Amino Transferase 30 U/L (14-36); Bilirubin,Total 0.4 mg/dL (0.2-1.3); Blood Urea Nitrogen 18 mg/dL (7-17); Calcium 9.2 mg/dL (8.4-10.2); Carbon Dioxide 27 mmol/L (22-30); Chloride 103 mmol/L (98-107); Estimated CRCL calculation 39 ml/min; Estimated Glomerular Filt Rate 55; Glucose 103 mg/dL (65-110); Lipase 316 U/L (23-300); Potassium 4.1 mmol/L (3.4-5.0); Sodium 141 mmol/L (137-145)
[2022-04-03 17:09] LABS: Add Urine Microscopic? NO
--- NOTE | 2022-04-03 17:24 | ED.ABDPAIN ---
HPI - Abdominal Pain General Chief Complaint: Abdominal Pain Stated Complaint: abd pain Time Seen by Provider: 04/03/22 16:27 History of Present Illness HPI narrative: 66-year-old Georgian speaking female presents with her grandson who is the insole stiffener with a history of kidney stones presents to the emergency room for evaluation of right lower quadrant pain. States pain is similar in nature to that of 4 weeks ago when she was seen 4 weeks. States pain resolved shortly after her ER evaluation when she began taking the ABX. Patient has a history of multiple C-sections and a cholecystectomy. Per recent medical records, a CT was obtained 4 weeks ago showing a possible intra-abdominal mass. Patient f/u with MD Phelan shortly after her ER visit. Related Data Allergies Allergy/AdvReac Type Severity Reaction Status Date / Time No Known Allergies Allergy Verified 03/05/22 13:05 Review of Systems Review of Systems: CONSTITUTIONAL: Denies fever, chills, or sweats. EYES: Denies visual changes, redness, or discharge. ENT: Denies rhinorrhea, congestion, sore throat, or otalgia. CARDIOVASCULAR: Denies chest pain, palpitations, or edema. RESPIRATORY: Denies cough or dyspnea. GASTROINTESTINAL: Reports abdominal pain GENITOURINARY: Denies dysuria or hematuria. SKIN: Denies rash or itching. MUSCULOSKELETAL: Denies back pain, joint pain, or myalgia. NEUROLOGIC: Denies headache, numbness, dizziness, or weakness. PSYCHIATRIC: Denies anxiety or depression. [facility] Past Medical History Medical History Bile duct abnormality Nausea and vomiting in adult RUQ pain Surgical History Surgical History Hx laparoscopic cholecystectomy Hx of section Family History Family History Son No problems noted. Social History Social History Smoking status: Never smoker Alcohol intake: never Substance use: never Substance use type: does not use Additional living arrangements comments: Lives with son Gender identity (if verbalized by the patient): Female Spiritual care concerns: No Exam Narrative: GENERAL: Well-appearing, well-nourished, no physical limitations, and in no acute distress. HEAD: Normocephalic, atraumatic. EYES: Conjunctivae normal, PERRLA and EOMI. CHEST: Clear to auscultation. No respiratory distress. No wheezes rales or rhonchi. HEART: Regular rate and rhythm. No murmur heard. Normal peripheral pulses. ABDOMEN: Soft, right lower quadrant tenderness, nondistended, normal active bowel sounds. BACK: No CVA tenderness EXTREMITIES: Normal range of motion. No edema. No clubbing or cyanosis SKIN: Warm, dry, no rash. No noted wounds NEURO: No focal deficits. Alert and oriented x3. MAEW. CN's II-XI intact bilaterally, normal gait PSYCH: Cooperative. Normal mood and affect. Course Course Emergency Course: 1829: Spoke with MD Young. He recommends patient f/u with GI for a colonoscopy. Vital Signs Vital signs: Vital Signs Temperature 36.8 C 04/03/22 16:06 Pulse Rate 82 04/03/22 16:06 Respiratory Rate 18 04/03/22 16:06 Blood Pressure 111/68 04/03/22 16:06 Pulse Oximetry 98 04/03/22 16:06 Oxygen Delivery Room Air 04/03/22 16:06 Temperature 36.8 C 04/03/22 16:06 Pulse Rate 82 04/03/22 16:06 Respiratory Rate 18 04/03/22 16:06 Blood Pressure 111/68 04/03/22 16:06 Pulse Oximetry 98 04/03/22 16:06 Oxygen Delivery Room Air 04/03/22 16:06 MDM - Abdominal Pain MDM Narrative Medical decision making narrative: 66-year-old female presented the emergency room with a recurrent right lower quadrant abdominal pain. CT scan shows no change from her prior scan 1 month ago. Discussed case with Dr. Young, he agrees with Dr. Moran that the patient needs a
[2022-04-03 19:09] VITALS: BP 120/70; PULSE 76; RESP 18; O2SAT 99
== END 2022-04-03 19:10 | disposition home or self-care (01) ==
PROVIDERS: Emergency Medicine; Emergency Provider Nurse Practitioner Family
DX: R10.31 Right lower quadrant pain (principal); R19.03 Right lower quadrant abdominal swelling, mass and lump
CPT/HCPCS: 36415; 74177; 80053; 81003; 83690; 85025; 99284; Q9967

== ENCOUNTER 2022-04-09 00:56 | Day surgery (SDC) | payer MEDICAID, SELFPAY ==
[2022-04-04 14:56] VITALS: BMI 27.1
[2022-04-09 11:58] VITALS: BP 129/69; PULSE 62; RESP 18; TEMP 36.4; O2SAT 99; BMI 29.0
--- NOTE | 2022-04-09 12:01 | SUR.PREOP ---
Patient speaks Amharic. Son Yaneth at bedside translating for patient. Son read consent to patient prior to patient signing.
[2022-04-09] MEDS: LACTATED RINGERS 1,000 ML 150 ML IV CONT (12:17)
--- NOTE | 2022-04-09 13:11 | PM.HPGS ---
History of Present Illness History of Present Illness Consent: Risks, benefits, and alternatives have been discussed and questions answered. Patient agrees to proceed with procedure. 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) Review of Systems Constitutional: Constitutional: Denies headache(s) and Denies weakness Eyes: Eyes: Denies blurry vision ENT: Reports Normal hearing present, Denies headache(s) and Denies neck pain Cardiovascular: Cardiovascular: Denies chest pain and Denies dyspnea Respiratory: Respiratory: Denies dyspnea Gastrointestinal: Gastrointestinal: Reports no additional gastrointestinal complaints Genitourinary: Genitourinary: Denies dysuria Musculoskeletal: Musculoskeletal: Denies neck pain Integumentary/Breasts: Skin/Breast: Denies dry skin Neurologic: Reports Normal hearing present, Denies headache(s) and Denies weakness Psychiatric: Psychiatric: Denies anxiety Endocrine: Endocrine: Denies change in body appearance Hematologic/Lymphatic: Hematologic/Lymphatic: Denies easy bleeding Allergic/Immunologic: Allergic/Immunologic: Denies urticaria PMFSH Past Medical History Medical History Bile duct abnormality Nausea and vomiting in adult RUQ pain Surgical History Surgical History Hx laparoscopic cholecystectomy Hx of section Family History Family History Son No problems noted. Social History Social History Smoking status: Never smoker Alcohol intake: never Substance use: never Substance use type: does not use Living arrangements: with family Additional living arrangements comments: Lives with son Gender identity (if verbalized by the patient): Female Spiritual care concerns: Yes Meds Home Medications and Allergies Home Medications Medication Instructions Recorded Confirmed Type tramadol 50 mg tablet 50 mg PO Q6H PRN pain #14 tabs 04/03/22 04/09/22 Rx Allergies Allergy/AdvReac Type Severity Reaction Status Date / Time No Known Allergies Allergy Verified 04/09/22 11:57 Vital Signs Vital Signs - 24 hr 04/09/22 11:58 Temperature 97.6 F Pulse Rate 62 Respiratory Rate 18 Blood Pressure 129/69 Pulse Oximetry 99 Oxygen Delivery Room Air Exam Const: General: comfortable and no acute distress HENMT: General nose exam: Normal nares present Eyes: General: appearance normal, both eyes and all related structures Neck: Neck: no JVD Resp: Auscultation: clear to auscultation bilaterally Cardio: Rate: regular rate Rhythm: regular rhythm GI: Inspection: non-distended GI Palp: Yes Soft to palpation Skin: General skin exam: normal color Neuro: General: gait normal Speech: normal speech Extrem: General: normal to inspection Psych: Mental Status: mental status grossly normal Assessment and Plan Assessment and plan (1) RLQ abdominal mass: Code(s): R19.03 - Right lower quadrant abdominal swelling, mass and lump Status: Acute Assessment and Plan: colonoscopy
[2022-04-09 13:49] VITALS: BP 94/59; PULSE 70; RESP 25; O2SAT 95
[2022-04-09 13:59] VITALS: BP 100/59; PULSE 59; RESP 21; O2SAT 100
[2022-04-09 14:09] VITALS: BP 102/61; PULSE 66; RESP 23; O2SAT 100
== END 2022-04-09 14:22 | disposition home or self-care (01) ==
PROVIDERS: Visit Provider Internal Medicine Gastroenterology
PROC: 0DJD8ZZ Inspection of Lower Intestinal Tract, Via Natural or Artificial Opening Endoscopic (ICD-10-PCS; CPT 45378; principal; 2022-04-09 13:00)
DX: D12.4 Benign neoplasm of descending colon (principal); K64.8 Other hemorrhoids; R19.03 Right lower quadrant abdominal swelling, mass and lump; Z90.49 Acquired absence of other specified parts of digestive tract
CPT/HCPCS: 45385; 88305; J2001; J2704; J7120